=== PATIENT | female | born 1935 | race Caucasian/White ===

== ENCOUNTER 2023-01-18 09:13 | Outpatient (CLI) | payer MEDICARE | END 2023-01-18 09:14 | disposition home or self-care (01) | LOC: CSHRAD 09:13 | PROVIDERS: ATTEND Physician Assistant | DX: S22.040D Wedge compression fracture of fourth thoracic vertebra, subsequent encounter for fracture with routine healing (principal); S22.060D Wedge compression fracture of T7-T8 vertebra, subsequent encounter for fracture with routine healing | CPT/HCPCS: 72070 ==

== ENCOUNTER 2023-02-25 13:48 | Outpatient (CLI) | payer MEDICARE | END 2023-02-25 13:49 | disposition home or self-care (01) | LOC: CSHRAD 13:48 | PROVIDERS: ATTEND Neurological Surgery | DX: M48.56XD Collapsed vertebra, not elsewhere classified, lumbar region, subsequent encounter for fracture with routine healing (principal); M48.54XD Collapsed vertebra, not elsewhere classified, thoracic region, subsequent encounter for fracture with routine healing | CPT/HCPCS: 72070 ==